=== PATIENT | female | born 1970 | race Caucasian/White ===

== ENCOUNTER 2017-10-23 15:35 | Emergency (ER) | payer OTHER ==
[~2017-10-23] VITALS: Ht 157.5 cm; Wt 80.9 kg
[2017-10-23 15:44] VITALS: BP 154/85
[2017-10-23] MEDS ORDERED: ONDANSETRON 4 MG ODT PO ONE (16:15)
[2017-10-23] MEDS ORDERED: HYDROcodone/APAP 5/325 MG 1 TAB TAB PO ONE (16:15)
[2017-10-23 16:34] LABS: BASOPHILS % (AUTO) 0.8 % (0.0-2.0); EOSINOPHILS # (AUTO) 0.1 K/uL (0-0.4); EOSINOPHILS % (AUTO) 2.3 % (0.0-4.0); HEMATOCRIT 31.1 % (36-48); HEMOGLOBIN 10.3 g/dL (12.0-16.0); LYMPHOCYTES # (AUTO) 1.7 K/uL (2.5-16.5); LYMPHOCYTES % (AUTO) 28.8 % (20.5-51.1); MEAN CORPUSCULAR HEMOGLOBIN 26 pg (27-31); MEAN CORPUSCULAR HGB CONC 33 g/dL (33-37); MEAN CORPUSCULAR VOLUME 79.4 fL (80-94); MONOCYTES # (AUTO) 0.4 K/uL (0.8-1.0); MONOCYTES % (AUTO) 7.1 % (1.7-9.3); NEUTROPHILS # (AUTO) 3.6 K/uL (1.8-7.7); PLATELET COUNT (AUTO) 289 K/uL (140-450); RED BLOOD CELL COUNT(AUTO) 3.91 MIL/uL (4.20-5.40); RED CELL DISTRIBUTION WIDTH 16.9 % (11.6-13.7); WHITE BLOOD COUNT (AUTO) 5.9 K/uL (4.8-10.8)
[2017-10-23 16:44] LABS: ANION GAP 11.5 (8-16); CARBON DIOXIDE 26.1 mmol/L (21-32); CREATININE 0.6 mg/dL (0.6-1.3); POTASSIUM 3.6 mmol/L (3.5-5.1)
[2017-10-23 16:50] LABS: ALBUMIN 3.7 g/dL (3.4-5.0); TOTAL BILIRUBIN 0.2 mg/dL (0.0-1.0)
[2017-10-23 17:25] VITALS: BP 143/78
== END 2017-10-23 17:26 | disposition home or self-care (01) ==
LOC: MED 15:35
DX: R10.9 Unspecified abdominal pain (principal); M54.9 Dorsalgia, unspecified; R03.0 Elevated blood-pressure reading, without diagnosis of hypertension; Z90.49 Acquired absence of other specified parts of digestive tract
CPT/HCPCS: 36415; 80053; 81002; 81025; 83690; 85025; 99284; S0119

== ENCOUNTER 2017-12-27 11:33 | Emergency (ER) | payer OTHER ==
[~2017-12-27] VITALS: Ht 157.5 cm; Wt 77.1 kg
[2017-12-27 11:35] VITALS: BP 144/90
--- NOTE | 2017-12-27 11:39 | NUR ---
PT AMBULATES TO BED 1
--- NOTE | 2017-12-27 11:40 | NUR ---
C/O LEFT FACIAL PAIN S/P MECH SLIP AND FALL 1 MONTH AGO WHILE WALKING TO HER BR AT NIGHT. DENIES N/V/D; SKIN IS PINK/WARM/DRY; AAOX4 WITH EVEN AND STEADY GAIT; LUNGS CLEAR BL; HR EVEN AND REGULAR; PT DENIES ANY FEVER, CP, SOB, OR COUGH AT THIS TIME; PATIENT STATES PAIN OF 4/10 AT THIS TIME; VSS; PATIENT POSITIONED FOR COMFORT; HOB ELEVATED; BEDRAILS UP X2; BED DOWN. ER MD MADE AWARE OF PT STATUS.
--- NOTE | 2017-12-27 11:45 | NUR ---
PT TAKEN TO CT IN WHEELCHAIR
[2017-12-27 13:25] VITALS: BP 138/82
== END 2017-12-27 13:25 | disposition home or self-care (01) ==
LOC: MED 11:33
DX: S00.83XA Contusion of other part of head, initial encounter (principal); Z90.49 Acquired absence of other specified parts of digestive tract; W19.XXXA Unspecified fall, initial encounter; Y93.89 Activity, other specified; Y92.89 Other specified places as the place of occurrence of the external cause; Y99.8 Other external cause status
CPT/HCPCS: 70486; 99284

== ENCOUNTER 2018-11-27 17:41 | Emergency (ER) | payer OTHER ==
[~2018-11-27] VITALS: Ht 157.5 cm; Wt 73.9 kg
[2018-11-27 18:12] VITALS: BP 154/90
--- NOTE | 2018-11-27 18:16 | NUR ---
PT TO LOBBY
--- NOTE | 2018-11-27 19:09 | NUR ---
pt ambulated to bed 11
--- NOTE | 2018-11-27 19:19 | NUR ---
Note undone in EDM - 11/27/18 at 2007 by [email or web address] PT CAME IN C/O OF NECK AND LOWER BACK PAIN P/S FALL FROM LAST NIGHT. PER PT SHE SLIPPED AT HOME WHILE DOING LAUNDRY. DENIES LOSING CONSCIOUSNESS OR HTTING HEAD. PAIN LEVEL 7/10, ACHING WITH MOVEMENT. NKA. MED HX: GALLSTONES. SAFETY MEASURES IN PLACE. WAITING FOR ERMD TO EVALUATE PT.
--- NOTE | 2018-11-27 19:19 | NUR ---
PT CAME IN C/O OF NECK AND LOWER BACK PAIN S/P MECHANICAL FALL FROM LAST NIGHT. PER PT SHE SLIPPED AT HOME WHILE DOING LAUNDRY. DENIES LOSING CONSCIOUSNESS OR HTTING HEAD. PAIN LEVEL 7/10, ACHING WITH MOVEMENT. NKA. MED HX: GALLSTONES. SAFETY MEASURES IN PLACE. WAITING FOR ERMD TO EVALUATE PT.
[2018-11-27] MEDS ORDERED: ACETAMINOPHEN EXTRA STRENGTH 500 MG TAB PO ONE (19:20)
[2018-11-27 21:37] VITALS: BP 136/90
--- NOTE | 2018-11-27 21:38 | NUR ---
Patient discharged with v/s stable. Written and verbal after care instructions given and explained. Encouraged to ice lower sacral area and take medications as prescribed. Patient alert, oriented and verbalized understanding of instructions. Ambulatory with steady gait. All questions addressed prior to discharge. ID band removed. Patient advised to follow up with PMD. Rx of NAPROXEN WAS given. Patient educated on indication of medication including possible reaction and side effects. Opportunity to ask questions provided and answered.
== END 2018-11-27 21:38 | disposition home or self-care (01) ==
LOC: MED 17:41
DX: S39.012A Strain of muscle, fascia and tendon of lower back, initial encounter (principal); M53.3 Sacrococcygeal disorders, not elsewhere classified; Z90.49 Acquired absence of other specified parts of digestive tract; W01.0XXA Fall on same level from slipping, tripping and stumbling without subsequent striking against object, initial encounter; Y93.89 Activity, other specified; Y92.89 Other specified places as the place of occurrence of the external cause; Y99.8 Other external cause status
CPT/HCPCS: 72110; 72220; 99283

== ENCOUNTER 2019-02-21 12:23 | Emergency (ER) | payer OTHER ==
[~2019-02-21] VITALS: Ht 157.5 cm; Wt 77.8 kg
[2019-02-21 12:36] VITALS: BP 146/89
[2019-02-21 13:48] VITALS: BP 139/85
== END 2019-02-21 13:47 | disposition home or self-care (01) ==
LOC: MED 12:23
DX: H11.32 Conjunctival hemorrhage, left eye (principal)
CPT/HCPCS: 99283

== ENCOUNTER 2019-03-16 11:26 | Emergency (ER) | payer OTHER ==
[~2019-03-16] VITALS: Ht 157.5 cm; Wt 77.1 kg
[2019-03-16 11:30] VITALS: BP 168/86
--- NOTE | 2019-03-16 11:35 | NUR ---
pt arrived to ed c/o left hand lac x 30mins ago. rates pain 02/14. pt states she was trying to open a toy for her nephew by using a blade and accidently cut herself on the left hand. cms intact on both hands. swelling, bleeding, lac, and redness noted on left hand. radials pulses present bilatrally. no obvious deformity noted on extrem. vss. nka. denies any pmh.
--- NOTE | 2019-03-16 11:35 | NUR ---
PT TAKEN TO BED 8.
[2019-03-16] MEDS ORDERED: LIDOCAINE 1% 500 MG/ 50 ML VIAL INJ ONE (11:50)
[2019-03-16] MEDS ORDERED: BACITRACIN OINT 500 UNITS/GM PKT TP ONE (11:50)
[2019-03-16] MEDS ORDERED: LIDOCAINE MPF 1% 5 ML ONE (11:57)
[2019-03-16] MEDS ORDERED: LIDOCAINE MPF 1% 10 MG/ML VIAL INJ ONE (12:00)
--- NOTE | 2019-03-16 12:05 | NUR ---
lidocaine given to md dunham to administer for procedure. also bactricin given to rj cristina to administer for procedure.
--- NOTE | 2019-03-16 12:05 | NUR ---
at bedside for procedure.
--- NOTE | 2019-03-16 12:12 | NUR ---
Osman portillo in EDM - 03/16/19 at 1214 by [facility] lidocaine given to md dunham to administer for procedure. also bactricin given to rj cristina to administer for procedure.
[2019-03-16 12:27] VITALS: BP 168/86
== END 2019-03-16 12:27 | disposition home or self-care (01) ==
LOC: MED 11:26
DX: S61.412A Laceration without foreign body of left hand, initial encounter (principal); W26.0XXA Contact with knife, initial encounter; Y93.89 Activity, other specified; Y92.89 Other specified places as the place of occurrence of the external cause; Y99.8 Other external cause status
CPT/HCPCS: 12001; 90471; 90715; 99283; J2001

== ENCOUNTER 2019-03-22 09:17 | Emergency (ER) | payer OTHER ==
[~2019-03-22] VITALS: Ht 157.5 cm; Wt 77.1 kg
[2019-03-22 09:19] VITALS: BP 152/82
--- NOTE | 2019-03-22 09:27 | NUR ---
Patient ambulated to bed 2. RN evaluating patient at bedside.
--- NOTE | 2019-03-22 09:28 | NUR ---
pt arrived to ed for suture removal to left palm near thumb area. suture is dry,clean, and intact. no discharge noted. swelling noted. no redness. bursing noted. vss. nka.
[2019-03-22 09:44] VITALS: BP 152/82
--- NOTE | 2019-03-22 09:44 | NUR ---
Patient discharged with v/s stable. Written and verbal after care instructions given and explained. Patient verbalized understanding. Ambulatory with steady gait. All questions addressed prior to discharge. Advised to follow up with PMD.
== END 2019-03-22 09:41 | disposition home or self-care (01) ==
LOC: MED 09:17
DX: Z48.1 Encounter for planned postprocedural wound closure (principal)
CPT/HCPCS: 99281

== ENCOUNTER 2020-02-07 11:21 | Emergency (ER) | payer OTHER ==
[~2020-02-07] VITALS: Ht 157.5 cm; Wt 86.2 kg
[2020-02-07 11:23] VITALS: BP 168/87
--- NOTE | 2020-02-07 11:27 | NUR ---
PT AMBULATED TO BED 6, STEADY GAIT.
--- NOTE | 2020-02-07 11:43 | NUR ---
Dr. Aguilera is evaluating the patient at bedside.
[2020-02-07] MEDS ORDERED: KETOROLAC 30 MG/ML VIAL IM ONE (11:45)
--- NOTE | 2020-02-07 11:56 | NUR ---
PATIENT PRESENTS TO ED WITH MID BACK PAIN X 3 MONTHS, CONSTANT 7/10 SHARP PAIN THAT RADIATES TO LOW ABD. DENEIS HEMATURIA OR DYSURIA. DENIES N/V/D PMH- DENIES . SKIN IS PINK/WARM/DRY; AAOX4 WITH EVEN AND STEADY GAIT; LUNGS CLEAR BL; HR EVEN AND REGULAR; PT DENIES ANY FEVER, CP, SOB, OR COUGH AT THIS TIME; PATIENT STATES PAIN OF 7/10 AT THIS TIME; VSS; PATIENT POSITIONED FOR COMFORT; HOB ELEVATED; BEDRAILS UP X2; BED DOWN. ER MD MADE AWARE OF PT STATUS.
--- NOTE | 2020-02-07 11:59 | NUR ---
URINE COLLECTED AND GIVEN TO [facility] VIBRATOR
--- NOTE | 2020-02-07 11:59 | NUR ---
US AT BEDSIDE
[2020-02-07 12:51] LABS: APPEARANCE,URINE CLEAR (CLEAR); BILIRUBIN,URINE NEGATIVE (NEGATIVE); BLOOD, URINE 2+ (NEGATIVE); COLOR,URINE YELLOW (YELLOW); LEUKOCYTE ESTERASE ,URINE NEGATIVE (NEGATIVE); NITRITE, URINE NEGATIVE (NEGATIVE); PH,URINE 6.5 (5.0-9.0); UGLUCOSE NEGATIVE (NEGATIVE)
[2020-02-07 12:58] LABS: WBC,URINE 0-5 /HPF (0-5)
[2020-02-07 13:12] LABS: ALBUMIN 3.7 g/dL (3.4-5.0); ANION GAP 10.2 (8-16); CARBON DIOXIDE 30.5 mmol/L (21-32); CREATININE 0.7 mg/dL (0.6-1.3); POTASSIUM 4.7 mmol/L (3.5-5.1); TOTAL BILIRUBIN 0.3 mg/dL (0.0-1.0)
[2020-02-07 14:01] VITALS: BP 168/87
--- NOTE | 2020-02-07 14:02 | NUR ---
Patient discharged with v/s stable. Written and verbal after care instructions given and explained. Patient alert, oriented and verbalized understanding of instructions. Ambulatory with steady gait. All questions addressed prior to discharge. ID band removed. Patient advised to follow up with PMD. Rx of VALIUM, NAPROSYN given. Patient educated on indication of medication including possible reaction and side effects. Opportunity to ask questions provided and answered.
== END 2020-02-07 14:02 | disposition home or self-care (01) ==
LOC: MED 11:21
DX: R31.9 Hematuria, unspecified (principal); N20.0 Calculus of kidney; Z90.49 Acquired absence of other specified parts of digestive tract
CPT/HCPCS: 36415; 76770; 80053; 81001; 83690; 96372; 99284; J1885; Q0092

== ENCOUNTER 2020-12-13 10:12 | Emergency (ER) | payer OTHER, SELFPAY ==
[~2020-12-13] VITALS: Ht 154.9 cm; Wt 81.6 kg
[2020-12-13 10:32] VITALS: BP 145/76
--- NOTE | 2020-12-13 10:35 | NUR ---
MD Aguilera evaluating pt at chairside
--- NOTE | 2020-12-13 10:41 | NUR ---
Lower back pain since 12/07/20. Pain level /10, aching. Pt also having COVID 19 symptoms. Fever, body aches, loss of taste and smell, headaches. Pt tested COVID + on 12/12/20. Pt took tylenol at 6am. Pt currently afebrile. Allergies: NKA Med hx: gallbladder stones
--- NOTE | 2020-12-13 10:43 | NUR ---
Pt ambulated to restroom to provide urine sample
--- NOTE | 2020-12-13 11:10 | NUR ---
Pt ambulated to Xray
[2020-12-13 12:15] LABS: APPEARANCE,URINE CLEAR (CLEAR); BILIRUBIN,URINE NEGATIVE (NEGATIVE); BLOOD, URINE 3+ (NEGATIVE); COLOR,URINE YELLOW (YELLOW); LEUKOCYTE ESTERASE ,URINE NEGATIVE (NEGATIVE); NITRITE, URINE NEGATIVE (NEGATIVE); UGLUCOSE NEGATIVE (NEGATIVE)
[2020-12-13 12:21] LABS: WBC,URINE 0-5 /HPF (0-5)
[2020-12-13] MEDS ORDERED: NAPR-54 PO (12:40)
[2020-12-13 13:05] VITALS: BP 136/71
--- NOTE | 2020-12-13 13:06 | NUR ---
Patient discharged with v/s stable. Written and verbal after care instructions given ACUTE BACK PAIN AND COVID 19 and explained. Patient alert, oriented and verbalized understanding of instructions. Ambulatory with steady gait. All questions addressed prior to discharge. ID band removed. Patient advised to follow up with PMD. Rx of NAPROXEN 500MG PO BID PRN PAIN given. Patient educated on indication of medication including possible reaction and side effects. Opportunity to ask questions provided and answered.
== END 2020-12-13 13:06 | disposition home or self-care (01) ==
LOC: MED 10:12
DX: U07.1 COVID-19 (principal); M54.9 Dorsalgia, unspecified
CPT/HCPCS: 71045; 81001; 81025; 99285

== ENCOUNTER 2020-12-16 12:45 | Emergency (ER) | payer OTHER, SELFPAY ==
[~2020-12-16] VITALS: Ht 154.9 cm; Wt 81.6 kg
[~2020-12-16 12:45] MED LIST: NAPR-54 PO
[2020-12-16 13:24] VITALS: BP 136/77
--- NOTE | 2020-12-16 13:37 | NUR ---
TENT3
[2020-12-16] MEDS ORDERED: PRED20TA5 PO (14:13)
[2020-12-16] MEDS ORDERED: ALBU0.0912 IH (14:13)
[2020-12-16] MEDS ORDERED: NAPR-54 PO (14:13)
[2020-12-16] MEDS ORDERED: PROM118S5 PO (14:13)
[2020-12-16] MEDS ORDERED: DOXY100C9 PO (14:13)
[2020-12-16] MEDS ORDERED: AZIT250T4 PO (14:13)
--- NOTE | 2020-12-16 14:20 | NUR ---
Patient discharged with v/s stable. Written and verbal after care instructions given and explained. Patient alert, oriented and verbalized understanding of instructions. Ambulatory with steady gait. All questions addressed prior to discharge. ID band removed. Patient advised to follow up with PMD. Rx of Zithromax, Doxycycline, Naproxen, Prednisone, Promethazine given. Patient educated on indication of medication including possible reaction and side effects. Opportunity to ask questions provided and answered.
== END 2020-12-16 14:20 | disposition home or self-care (01) ==
LOC: MED 12:45
DX: U07.1 COVID-19 (principal); J12.82 Pneumonia due to coronavirus disease 2019; Z79.899 Other long term (current) drug therapy
CPT/HCPCS: 71045; 99283